=== PATIENT | female | born 2000 | race American Indian/Alaskan Native ===

== ENCOUNTER 2018-12-24 18:22 | Inpatient (IN) | payer MEDICAID, OTHER ==
[2018-12-24] MEDS ORDERED: XYLOCAINE 2% INFILTRATI ONE (19:08)
[2018-12-24] MEDS ORDERED: BRETHINE IVP PRN (19:08)
[2018-12-24] MEDS ORDERED: STADOL IV PRN (19:08)
[2018-12-24] MEDS ORDERED: MINERAL OIL PO PRN (19:08)
[2018-12-24] MEDS ORDERED: SUBLIMAZE IV PRN (19:08)
[2018-12-24] MEDS ORDERED: ZOFRAN IV PRN (19:08)
[2018-12-24] MEDS ORDERED: BRETHINE SUB-Q PRN (19:08)
--- NOTE | 2018-12-24 19:32 | History and Physical Report ---
History of Present Illness Date of examination: 12/24/18 Date of admission: 12/24/18 18:22 Chief complaint: 39 week gestation Elevated blood pressure affecting History of present illness: 18 yo, at 39.1 wks gestation, who is a pt of [employer], initiated care at 22.1 wks gestation. She was seen today in clinic and sent to [facility] for labor augmentation secondary advance dilatation with elevated blood pressures. Her has been complicated by late care, sickle cell trait, anemia and chlamydia infection (tx 09/19/18, FRANDY collected today, results pending). Labs: A+, antibody negative; rubella immune; VDRL negative; HBsAg negative; HIV negative, Gc/Trichomonas negative; 1 hr [id number]; GBS negative Past History Past Medical History: other (Eczema; Sickle cell trait) Past Surgical History: no surgical history [employer] History: chlamydia (09/19/2018) Family/Genetic History: hypertension, cancer, other (Hyperlipidema) Social history: single, lives with family, full code. denies: smoking, alcohol abuse, prescription drug abuse, IV drug use - Obstetrical History Expected Date of Delivery: 12/30/18 Actual Gestation: 39 Week(s) 1 Day(s) : 2 Para: 1 Hx # Term Pregnancies: 1 Number of Pregnancies: 0 Spontaneous Abortions: 0 Induced : 0 Number of Living Children: 1 #1 Gender: Male year: 2020 Birthweight: 2.92 kg Method of Delivery: Vaginal Gestational age at delivery: 38 Complications: none Medications and Allergies Active Meds: Active Medications Butorphanol Tartrate (Stadol) 1 mg IV Q2H PRN PRN Reason: Pain, Moderate (4-6) Ephedrine Sulfate (Ephedrine Sulfate) 10 mg IV Q2M PRN PRN Reason: Hypotension Fentanyl (Sublimaze) 100 mcg IV Q2H PRN PRN Reason: Labor Pain Oxytocin/Sodium Chloride (Pitocin/Ns 20 Unit/1000ml Drip) 20 units in 1,000 mls @ 125 mls/hr IV DIRECT JANENE Oxytocin/Sodium Chloride (Pitocin/Ns 30 Unit/500ml) 30 units in 500 mls @ 2 mls/hr IV TITR JANENE; Protocol Lactated Ringer's (Lactated Ringers) 1,000 mls @ 125 mls/hr IV DIRECT JANENE Lidocaine (Xylocaine 2%) 20 ml INFILTRATI ONCE ONE Stop: 12/24/18 19:09 Mineral Oil (Mineral Oil) 30 ml PO QHS PRN PRN Reason: Constipation Ondansetron HCl (Zofran) 4 mg IV Q8H PRN PRN Reason: Nausea And Vomiting Terbutaline Sulfate (Brethine) 0.25 mg SUB-Q ONCE PRN PRN Reason: Hyperstimulation/Hypertonicity Terbutaline Sulfate (Brethine) 0.25 mg IVP ONCE PRN PRN Reason: Hyperstimulation/Hypertonicity Review of Systems All systems: negative Eyes: no blurred vision, no tunnel vision, no blind spots Neurological: no headaches, no double vision, no loss of vision - Vital Signs Vital signs: Vital Signs Pulse Pulse Ox 79 91 12/24/18 18:56 12/24/18 18:56 Temp Pulse Resp BP Pulse Ox 112 H 154/89 100 12/24/18 19:07 12/24/18 19:07 12/24/18 19:01 - Physical Exam Breasts: Positive: deferred Cardiovascular: Regular rate Lungs: Positive: Normal air movement Abdomen: Positive: other (gravid) Genitourinary (Female): Positive: normal external genitalia Vagina: Positive: normal moisture Uterus: Positive: enlarged (S=D) Anus/Rectum: Positive: normal perianal skin Extremities: Positive: normal Deep Tendon Reflex Grade: Normal +2 - Obstetrical FHR: category 1 Uterine Contraction Monitor Mode: External Cervical Dilatation: 5 Cervical Effacement Percentage: 90 station: -2 Uterine Contraction Frequency (min): 5-7 Uterine Contraction Pattern: Irregular Uterine Tone Measurement Phase: Resting Uterine Contraction Intensity: Mild Results All other labs normal. Assessment and Plan - Patient Problems (1) 39 weeks gestation of Current Visit: Yes Status: Acute Plan to address problem: Admit to L & D Pitocin augmentation Pain medications/Epidural as desired Anticipate (2) Elevated blood pressure complicating in third trimester, antepartum Current Visit: Yes Status: Acute Plan to address problem: Q 15 B/P monitoring Notify for B/P > 160/100 (3) Anemia affecting second Current Visit: Yes Status: Acute Plan to address problem: Resume po iron supplementation PP (4) Late care affecting Current Visit: Yes Status: Acute
[2018-12-24] MEDS ORDERED: PITOCin/NS 30 UNIT/500ML 30 UNITS/500 ML BAG IV SCH (20:00)
[2018-12-24] MEDS ORDERED: PITOCin/NS 20 UNIT/1000ML DRIP 20 UNITS/1,000 ML BAG IV SCH (20:00)
[2018-12-24] MEDS ORDERED: LACTATED RINGERS 1,000 ML IV SCH ×2 (20:00→22:00)
[2018-12-24 20:39] LABS: Hematocrit 21.2 % (30.3-42.9); Hemoglobin 6.7 gm/dl (10.1-14.3); Mean Corpuscular HGB Conc 32 % (30-34); Platelet Count 336 K/mm3 (140-440); Red Blood Count 3.37 M/mm3 (3.65-5.03)
[2018-12-24 20:50] LABS: Mean Corpuscular Volume 63 fl (79-97)
[2018-12-24] MEDS ORDERED: APRESOLINE IV PRN (21:33)
--- NOTE | 2018-12-24 21:46 | Event Note ---
18yo at 39 1/7 weeks presents for augmentation of labor due to gestational hypertension . Labs were drawn and H/H 01/10. She denies dyspnea, headache or feeling lightheaded. She presented in latent labor 5cm. Discussed recommendation of blood transfusion with patient. BP in room 125/78. BP 140/100 150/90 on admission No sx of preeclampsia with severe features. The patient states she was anemic with her first baby 1 year ago. She states she eats ice which she thought was supposed to help with her anemia. She states the baby needed a blood transfusion. She is a poor historian. Plan 1. Draw PIH labs. If severe features, start magnesium sulfate. 2. If patient agrees to blood transfusion, transfuse 2 units pRBCs. 3. Order prophylactic Hemabate and Misprostol for hemorrhage. 4. Once blood transfusion complete or if preeclampsia diagnosed, proceed to augmentation of labor.
[2018-12-24 22:01] LABS: Albumin 3.4 g/dL (3.9-5); Bilirubin,Direct 0.2 mg/dL (0-0.2); Uric Acid 4.1 mg/dL (3.5-7.6)
[2018-12-24 22:02] LABS: Alanine Aminotransferase < 5 units/L (7-56)
[2018-12-24] MEDS ORDERED: BENADRYL PO PRN (22:19)
[2018-12-24] MEDS ORDERED: TYLENOL PO PRN (22:19)
[2018-12-24] MEDS ORDERED: NACL 0.9% 500 ML 500 ML IV ONE (22:45)
[2018-12-25 01:07] LABS: Bacteria,Urine 1+ /HPF (Negative); Bilirubin,Urine NEG (Negative); Blood,Urine MOD (Negative); Color,Urine Yellow (Yellow); Protein,Urine <15 mg/dL mg/dL (Negative)
[2018-12-25 06:39] LABS: Hematocrit 25.6 % (30.3-42.9); Hemoglobin 8.4 gm/dl (10.1-14.3); Mean Corpuscular HGB Conc 33 % (30-34); Platelet Count 293 K/mm3 (140-440); Red Blood Count 3.81 M/mm3 (3.65-5.03)
[2018-12-25 06:40] LABS: Mean Corpuscular Volume 67 fl (79-97); Red Cell Distribution Width 25.4 % (13.2-15.2)
--- NOTE | 2018-12-25 10:06 | Progress Note ---
Assessment and Plan A: IUP @ 39 2/7 Weeks Category I Tracings Gestational HTN Severe Anemia GBS Negative Advanced Cervical Dilation P: Start Pitocin Augmentation Subjective - Subjective Date of service: 12/25/18 Patient reports: movement normal, other (States she feels better after blood transfusion. Denies dizziness, nausea/vomitting, epigastic pain, HAs, and visual changes) Objective - Vital Signs Vital Signs: Vital Signs - 12hr 12/24/18 12/24/18 12/24/18 22:07 22:12 22:17 Temperature Pulse Rate 135 H 96 H 109 H Respiratory Rate Blood Pressure 138/84 O2 Sat by Pulse 100 100 100 Oximetry 12/24/18 12/24/18 12/24/18 22:22 22:27 22:32 Temperature Pulse Rate 94 H 91 H 92 H Respiratory Rate Blood Pressure O2 Sat by Pulse 100 100 100 Oximetry 12/24/18 12/24/18 12/24/18 22:37 22:39 22:42 Temperature Pulse Rate 85 97 H 92 H Respiratory Rate Blood Pressure 122/84 O2 Sat by Pulse 100 100 Oximetry 12/24/18 12/24/18 12/24/18 22:47 22:52 22:57 Temperature Pulse Rate 92 H 86 102 H Respiratory Rate Blood Pressure O2 Sat by Pulse 100 100 100 Oximetry 12/24/18 12/24/18 12/24/18 23:02 23:07 23:09 Temperature Pulse Rate 111 H 94 H 85 Respiratory Rate Blood Pressure 134/87 O2 Sat by Pulse 100 100 Oximetry 12/24/18 12/24/18 12/24/18 23:10 23:12 23:15 Temperature 97.6 F 98.0 F Pulse Rate 84 90 87 Respiratory 16 14 Rate Blood Pressure 134/87 156/99 O2 Sat by Pulse 100 100 Oximetry 12/24/18 12/24/18 12/24/18 23:17 23:22 23:25 Temperature 97.8 F Pulse Rate 87 92 H 76 Respiratory 16 Rate Blood Pressure 120/90 O2 Sat by Pulse 100 99 Oximetry 12/24/18 12/24/18 12/24/18 23:27 23:32 23:37 Temperature Pulse Rate 86 80 77 Respiratory Rate Blood Pressure 132/80 O2 Sat by Pulse 100 100 93 Oximetry 12/24/18 12/24/18 12/24/18 23:41 23:42 23:47 Temperature Pulse Rate 76 76 76 Respiratory Rate Blood Pressure 120/90 O2 Sat by Pulse 100 100 Oximetry 12/24/18 12/24/18 12/25/18 23:52 23:57 00:02 Temperature Pulse Rate 88 82 76 Respiratory Rate Blood Pressure 144/78 O2 Sat by Pulse 100 100 100 Oximetry 12/25/18 12/25/18 12/25/18 00:03 00:07 00:08 Temperature 97.6 F Pulse Rate 77 82 83 Respiratory 16 Rate Blood Pressure 132/82 O2 Sat by Pulse 100 99 92 Oximetry 12/25/18 12/25/18 12/25/18 00:20 00:22 00:25 Temperature 98.2 F Pulse Rate 98 H 98 H 74 Respiratory 16 Rate Blood Pressure 126/72 128/86 O2 Sat by Pulse 100 100 Oximetry 12/25/18 12/25/18 12/25/18 00:26 00:30 00:35 Temperature Pulse Rate 85 91 H 87 Respiratory Rate Blood Pressure 132/82 O2 Sat by Pulse 100 99 Oximetry 12/25/18 12/25/18 12/25/18 00:38 00:40 00:41 Temperature 98.2 F Pulse Rate 85 78 50 L Respiratory 16 Rate Blood Pressure 139/87 128/86 O2 Sat by Pulse 88 87 Oximetry 12/25/18 12/25/18 12/25/18 00:46 00:51 00:52 Temperature Pulse Rate 92 H 75 71 Respiratory Rate Blood Pressure O2 Sat by Pulse 89 100 87 Oximetry 12/25/18 12/25/18 12/25/18 00:56 00:57 00:59 Temperature Pulse Rate 73 76 79 Respiratory Rate Blood Pressure 157/94 139/87 O2 Sat by Pulse 100 Oximetry 12/25/18 12/25/18 12/25/18 01:01 01:06 01:07 Temperature Pulse Rate 83 77 79 Respiratory Rate Blood Pressure O2 Sat by Pulse 100 99 89 Oximetry 12/25/18 12/25/18 12/25/18 01:11 01:16 01:21 Temperature Pulse Rate 74 76 63 Respiratory Rate Blood Pressure 138/87 O2 Sat by Pulse 100 100 98 Oximetry 12/25/18 12/25/18 12/25/18 01:26 01:27 01:31 Temperature Pulse Rate 73 68 70 Respiratory Rate Blood Pressure 145/91 O2 Sat by Pulse 99 98 Oximetry 12/25/18 12/25/18 12/25/18 01:36 01:41 01:52 Temperature Pulse Rate 80 80 78 Respiratory Rate Blood Pressure 143/90 O2 Sat by Pulse 100 98 99 Oximetry 12/25/18 12/25/18 12/25/18 01:57 01:58 02:02 Temperature Pulse Rate 73 80 72 Respiratory Rate Blood Pressure 137/83 O2 Sat by Pulse 98 98 Oximetry 12/25/18 12/25/18 12/25/18 02:07 02:12 02:17 Temperature Pulse Rate 71 70 79 Respiratory Rate Blood Pressure 147/76 O2 Sat by Pulse 98 97 98 Oximetry 12/25/18 12/25/18 12/25/18 02:22 02:27 02:29 Temperature Pulse Rate 76 97 H 89 Respiratory Rate Blood Pressure 135/78 O2 Sat by Pulse 98 97 Oximetry 12/25/18 12/25/18 12/25/18 02:32 02:42 02:58 Temperature Pulse Rate 82 86 77 Respiratory Rate Blood Pressure 136/81 126/67 O2 Sat by Pulse 97 Oximetry 12/25/18 12/25/18 12/25/18 03:12 03:17 03:22 Temperature Pulse Rate 84 72 72 Respiratory Rate Blood Pressure O2 Sat by Pulse 96 100 99 Oximetry 12/25/18 12/25/18 12/25/18 03:27 03:32 03:37 Temperature Pulse Rate 70 73 72 Respiratory Rate Blood Pressure 149/82 O2 Sat by Pulse 99 99 98 Oximetry 12/25/18 12/25/18 12/25/18 03:41 03:42 03:47 Temperature Pulse Rate 76 78 78 Respiratory Rate Blood Pressure 130/72 O2 Sat by Pulse 98 98 Oximetry 12/25/18 12/25/18 12/25/18 03:52 03:56 03:57 Temperature Pulse Rate 77 72 80 Respiratory Rate Blood Pressure 143/77 O2 Sat by Pulse 98 98 Oximetry 12/25/18 12/25/18 12/25/18 04:02 04:07 04:12 Temperature Pulse Rate 86 87 85 Respiratory Rate Blood Pressure 124/73 O2 Sat by Pulse 98 98 96 Oximetry 12/25/18 12/25/18 12/25/18 04:17 04:22 04:27 Temperature Pulse Rate 101 H 82 77 Respiratory Rate Blood Pressure 131/73 O2 Sat by Pulse 98 96 98 Oximetry 12/25/18 12/25/18 12/25/18 04:32 04:41 04:56 Temperature Pulse Rate 92 H 75 80 Respiratory Rate Blood Pressure 123/71 138/76 O2 Sat by Pulse 99 Oximetry 12/25/18 12/25/18 12/25/18 05:12 05:26 05:51 Temperature Pulse Rate 85 82 87 Respiratory Rate Blood Pressure 143/86 126/75 O2 Sat by Pulse 96 Oximetry 12/25/18 12/25/18 12/25/18 05:56 06:01 06:06 Temperature Pulse Rate 74 80 78 Respiratory Rate Blood Pressure 136/83 O2 Sat by Pulse 96 97 97 Oximetry 12/25/18 12/25/18 12/25/18 06:11 06:12 06:16 Temperature Pulse Rate 76 77 73 Respiratory Rate Blood Pressure 137/83 O2 Sat by Pulse 95 98 Oximetry 12/25/18 12/25/18 12/25/18 06:26 06:31 06:36 Temperature Pulse Rate 87 92 H Respiratory Rate Blood Pressure O2 Sat by Pulse 92 96 98 Oximetry 12/25/18 06:41 Temperature Pulse Rate 79 Respiratory Rate Blood Pressure O2 Sat by Pulse 96 Oximetry - Exam Breasts: normal Cardiovascular: Regular rate Lungs: Clear to auscultation, Normal air movement Abdomen: Present: normal appearance, soft Uterus: Present: normal, firm, fundal height above umbilicus FHR: category 1 Uterine Contraction Monitor Mode: External Cervical Dilatation: 5 (VTX, Intact) Cervical Effacement Percentage: 80 station: -1 Uterine Contraction Pattern: Irregular Uterine Tone Measurement Phase: Resting Uterine Contraction Intensity: Mild Extremities: normal - Labs Labs: Abnormal Labs 12/24/18 12/24/18 12/24/18 20:17 20:17 20:17 WBC 13.9 H RBC 3.37 L Hgb 6.7 L Hct 21.2 L MCV 63 L MCH 20 L RDW 21.0 H Creatinine 0.6 L ALT < 5 L Albumin Urine WBC (Auto) Crossmatch See Detail 12/24/18 12/25/18 12/25/18 20:17 00:42 06:19 WBC 15.3 H RBC Hgb 8.4 L Hct 25.6 L MCV 67 L MCH 22 L RDW 25.4 H Creatinine ALT < 5 L Albumin 3.4 L Urine WBC (Auto) 42.0 H Crossmatch Laboratory Results - last 24 hr 12/24/18 12/24/18 12/24/18 20:17 20:17 20:17 WBC 13.9 H RBC 3.37 L Hgb 6.7 L Hct 21.2 L MCV 63 L MCH 20 L MCHC 32 RDW 21.0 H Plt Count 336 Creatinine 0.6 L Estimated GFR > 60 Uric Acid 4.1 Total Bilirubin Direct Bilirubin Indirect Bilirubin AST 13 ALT < 5 L Alkaline Phosphatase Lactate Dehydrogenase Total Protein Albumin Albumin/Globulin Ratio Urine Color Urine Turbidity Urine pH Ur Specific [place] Urine Protein Urine Glucose (UA) Urine Ketones Urine Blood Urine Nitrite Urine Bilirubin Urine Urobilinogen Ur Leukocyte Esterase Urine WBC (Auto) Urine RBC (Auto) U Epithel Cells (Auto) Urine Bacteria (Auto) Urine Yeast (Budding) Blood Type A POSITIVE Antibody Screen TNR DENZEL Antibody Screen Negative Crossmatch See Detail 12/24/18 12/24/18 12/25/18 20:17 Unknown 00:42 WBC RBC Hgb Hct MCV MCH MCHC RDW Plt Count Creatinine Estimated GFR Uric Acid Total Bilirubin 0.60 Direct Bilirubin 0.2 Indirect Bilirubin 0.4 AST 14 ALT < 5 L Alkaline Phosphatase 128 Lactate Dehydrogenase 174 Total Protein 6.3 Albumin 3.4 L Albumin/Globulin Ratio 1.2 Urine Color Yellow Urine Turbidity Slightly-cloudy Urine pH 6.0 Ur Specific [place] 1.009 Urine Protein <15 mg/dl Urine Glucose (UA) Neg Urine Ketones Tr Urine Blood Mod Urine Nitrite Neg Urine Bilirubin Neg Urine Urobilinogen 4.0 Ur Leukocyte Esterase Lg Urine WBC (Auto) 42.0 H Urine RBC (Auto) 11.0 U Epithel Cells (Auto) 2.0 Urine Bacteria (Auto) 1+ Urine Yeast (Budding) Few Blood Type Antibody Screen DENZEL Antibody Screen Crossmatch 12/25/18 06:19 WBC 15.3 H RBC 3.81 Hgb 8.4 L Hct 25.6 L MCV 67 L MCH 22 L MCHC 33 RDW 25.4 H Plt Count 293 Creatinine Estimated GFR Uric Acid Total Bilirubin Direct Bilirubin Indirect Bilirubin AST ALT Alkaline Phosphatase Lactate Dehydrogenase Total Protein Albumin Albumin/Globulin Ratio Urine Color Urine Turbidity Urine pH Ur Specific [place] Urine Protein Urine Glucose (UA) Urine Ketones Urine Blood Urine Nitrite Urine Bilirubin Urine Urobilinogen Ur Leukocyte Esterase Urine WBC (Auto) Urine RBC (Auto) U Epithel Cells (Auto) Urine Bacteria (Auto) Urine Yeast (Budding) Blood Type Antibody Screen DENZEL Antibody Screen Crossmatch
[2018-12-25] MEDS ORDERED: PITOCin/NS 30 UNIT/500ML 30 UNITS/500 ML BAG IV SCH (11:00)
[2018-12-25] MEDS ORDERED: MARCAINE 0.25% INFILTRATI ONE (13:38)
--- NOTE | 2018-12-25 13:46 | Progress Note ---
Assessment and Plan A: IUP @ 39 2/7 Weeks Category I Tracings Gestational HTN Severe Anemia GBS Negative Active Labor P: Continue Pitocin Augmentation AROM Epidural Anesthesia Subjective - Subjective Date of service: 12/25/18 Patient reports: movement normal, contractions (Requesting Epidural anesthesia), other (States she feels better after blood transfusion. Denies dizziness, nausea/vomitting, epigastic pain, HAs, and visual changes) Objective - Vital Signs Vital Signs: Vital Signs - 12hr 12/25/18 12/25/18 12/25/18 01:52 01:57 01:58 Temperature Pulse Rate 78 73 80 Blood Pressure 137/83 O2 Sat by Pulse 99 98 Oximetry 12/25/18 12/25/18 12/25/18 02:02 02:07 02:12 Temperature Pulse Rate 72 71 70 Blood Pressure 147/76 O2 Sat by Pulse 98 98 97 Oximetry 12/25/18 12/25/18 12/25/18 02:17 02:22 02:27 Temperature Pulse Rate 79 76 97 H Blood Pressure O2 Sat by Pulse 98 98 97 Oximetry 12/25/18 12/25/18 12/25/18 02:29 02:32 02:42 Temperature Pulse Rate 89 82 86 Blood Pressure 135/78 136/81 O2 Sat by Pulse 97 Oximetry 12/25/18 12/25/18 12/25/18 02:58 03:12 03:17 Temperature Pulse Rate 77 84 72 Blood Pressure 126/67 O2 Sat by Pulse 96 100 Oximetry 12/25/18 12/25/18 12/25/18 03:22 03:27 03:32 Temperature Pulse Rate 72 70 73 Blood Pressure 149/82 O2 Sat by Pulse 99 99 99 Oximetry 12/25/18 12/25/18 12/25/18 03:37 03:41 03:42 Temperature Pulse Rate 72 76 78 Blood Pressure 130/72 O2 Sat by Pulse 98 98 Oximetry 12/25/18 12/25/18 12/25/18 03:47 03:52 03:56 Temperature Pulse Rate 78 77 72 Blood Pressure 143/77 O2 Sat by Pulse 98 98 Oximetry 12/25/18 12/25/18 12/25/18 03:57 04:02 04:07 Temperature Pulse Rate 80 86 87 Blood Pressure O2 Sat by Pulse 98 98 98 Oximetry 12/25/18 12/25/18 12/25/18 04:12 04:17 04:22 Temperature Pulse Rate 85 101 H 82 Blood Pressure 124/73 O2 Sat by Pulse 96 98 96 Oximetry 12/25/18 12/25/18 12/25/18 04:27 04:32 04:41 Temperature Pulse Rate 77 92 H 75 Blood Pressure 131/73 123/71 O2 Sat by Pulse 98 99 Oximetry 12/25/18 12/25/18 12/25/18 04:56 05:12 05:26 Temperature Pulse Rate 80 85 82 Blood Pressure 138/76 143/86 126/75 O2 Sat by Pulse Oximetry 12/25/18 12/25/18 12/25/18 05:51 05:56 06:01 Temperature Pulse Rate 87 74 80 Blood Pressure 136/83 O2 Sat by Pulse 96 96 97 Oximetry 12/25/18 12/25/18 12/25/18 06:06 06:11 06:12 Temperature Pulse Rate 78 76 77 Blood Pressure 137/83 O2 Sat by Pulse 97 95 Oximetry 12/25/18 12/25/18 12/25/18 06:16 06:26 06:31 Temperature Pulse Rate 73 87 Blood Pressure O2 Sat by Pulse 98 92 96 Oximetry 12/25/18 12/25/18 12/25/18 06:36 06:41 07:30 Temperature 97.6 F Pulse Rate 92 H 79 Blood Pressure O2 Sat by Pulse 98 96 Oximetry 12/25/18 12/25/18 12/25/18 10:03 10:27 10:41 Temperature Pulse Rate 75 85 86 Blood Pressure 144/90 136/88 141/95 O2 Sat by Pulse Oximetry 12/25/18 12/25/18 12/25/18 10:56 11:12 11:26 Temperature Pulse Rate 76 92 H 79 Blood Pressure 143/101 140/96 154/94 O2 Sat by Pulse Oximetry 12/25/18 12/25/18 11:42 12:12 Temperature Pulse Rate 85 89 Blood Pressure 152/90 148/91 O2 Sat by Pulse Oximetry - Exam Breasts: normal Cardiovascular: Regular rate Lungs: Clear to auscultation, Normal air movement Abdomen: Present: normal appearance, soft Uterus: Present: normal, firm, fundal height above umbilicus FHR: category 1 Uterine Contraction Monitor Mode: External Cervical Dilatation: 6 (Moderate amount of clear fluid upon AROM at 1340) Cervical Effacement Percentage: 90 station: -1 Uterine Contraction Pattern: Regular Uterine Tone Measurement Phase: Resting Uterine Contraction Intensity: Moderate Extremities: normal - Labs Labs: Abnormal Labs 12/24/18 12/24/18 12/24/18 20:17 20:17 20:17 WBC 13.9 H RBC 3.37 L Hgb 6.7 L Hct 21.2 L MCV 63 L MCH 20 L RDW 21.0 H Creatinine 0.6 L ALT < 5 L Albumin Urine WBC (Auto) Crossmatch See Detail 12/24/18 12/25/18 12/25/18 20:17 00:42 06:19 WBC 15.3 H RBC Hgb 8.4 L Hct 25.6 L MCV 67 L MCH 22 L RDW 25.4 H Creatinine ALT < 5 L Albumin 3.4 L Urine WBC (Auto) 42.0 H Crossmatch Laboratory Results - last 24 hr 12/24/18 12/24/18 12/24/18 20:17 20:17 20:17 WBC 13.9 H RBC 3.37 L Hgb 6.7 L Hct 21.2 L MCV 63 L MCH 20 L MCHC 32 RDW 21.0 H Plt Count 336 Creatinine Estimated GFR Uric Acid Total Bilirubin Direct Bilirubin Indirect Bilirubin AST ALT Alkaline Phosphatase Lactate Dehydrogenase Total Protein Albumin Albumin/Globulin Ratio Urine Color Urine Turbidity Urine pH Ur Specific [place] Urine Protein Urine Glucose (UA) Urine Ketones Urine Blood Urine Nitrite Urine Bilirubin Urine Urobilinogen Ur Leukocyte Esterase Urine WBC (Auto) Urine RBC (Auto) U Epithel Cells (Auto) Urine Bacteria (Auto) Urine Yeast (Budding) RPR Nonreactive Blood Type A POSITIVE Antibody Screen TNR DENZEL Antibody Screen Negative Crossmatch See Detail 12/24/18 12/24/18 12/24/18 20:17 20:17 Unknown WBC RBC Hgb Hct MCV MCH MCHC RDW Plt Count Creatinine 0.6 L Estimated GFR > 60 Uric Acid 4.1 Total Bilirubin 0.60 Direct Bilirubin 0.2 Indirect Bilirubin 0.4 AST 13 14 ALT < 5 L < 5 L Alkaline Phosphatase 128 Lactate Dehydrogenase 174 Total Protein 6.3 Albumin 3.4 L Albumin/Globulin Ratio 1.2 Urine Color Urine Turbidity Urine pH Ur Specific [place] Urine Protein Urine Glucose (UA) Urine Ketones Urine Blood Urine Nitrite Urine Bilirubin Urine Urobilinogen Ur Leukocyte Esterase Urine WBC (Auto) Urine RBC (Auto) U Epithel Cells (Auto) Urine Bacteria (Auto) Urine Yeast (Budding) RPR Blood Type Antibody Screen DENZEL Antibody Screen Crossmatch 12/25/18 12/25/18 00:42 06:19 WBC 15.3 H RBC 3.81 Hgb 8.4 L Hct 25.6 L MCV 67 L MCH 22 L MCHC 33 RDW 25.4 H Plt Count 293 Creatinine Estimated GFR Uric Acid Total Bilirubin Direct Bilirubin Indirect Bilirubin AST ALT Alkaline Phosphatase Lactate Dehydrogenase Total Protein Albumin Albumin/Globulin Ratio Urine Color Yellow Urine Turbidity Slightly-cloudy Urine pH 6.0 Ur Specific [place] 1.009 Urine Protein <15 mg/dl Urine Glucose (UA) Neg Urine Ketones Tr Urine Blood Mod Urine Nitrite Neg Urine Bilirubin Neg Urine Urobilinogen 4.0 Ur Leukocyte Esterase Lg Urine WBC (Auto) 42.0 H Urine RBC (Auto) 11.0 U Epithel Cells (Auto) 2.0 Urine Bacteria (Auto) 1+ Urine Yeast (Budding) Few RPR Blood Type Antibody Screen DENZEL Antibody Screen Crossmatch
[2018-12-25] MEDS ORDERED: fentaNYL-BUPIV 2 MCG/ML-0.125% 200 MCG/100 ML BAG EPIDURAL ONE (14:08)
--- NOTE | 2018-12-25 14:10 | Anesthesia Consultation ---
Anesthesia Consult and Med Hx Date of service: 12/25/18 - Airway Anesthetic Teeth Evaluation: Good ROM Head & Neck: Adequate Mental/Hyoid Distance: Adequate Mallampati Class: Class II Intubation Access Assessment: Good - Pulmonary Exam CTA: Yes - Cardiac Exam Cardiac Exam: RRR - Pre-Operative Health Status ASA Pre-Surgery Classification: ASA2 Proposed Anesthetic Plan: Epidural - Pulmonary Hx Asthma: No COPD: No Hx Pneumonia: No - Cardiovascular System Hx Hypertension: Yes (gestational HTN) - Central Nervous System Hx Psychiatric Problems: No - Endocrine Hx Renal Disease: No Hx End Stage Renal Disease: No Hx Hypothyroidism: No Hx Hyperthyroidism: No - Hematic Hx Anemia: No Hx Sickle Cell Disease: No - Other Systems Hx Alcohol Use: No - Additional Comments Anesthesia Medical History Comments: anemia, sick cell trait
[2018-12-25] MEDS ORDERED: NARCAN 2 MG/2 ML IV PRN (14:11)
[2018-12-25] MEDS ORDERED: CYTOTEC ONE (14:15)
[2018-12-25] MEDS ORDERED: CYTOTEC VG ONE (14:15)
[2018-12-25] MEDS ORDERED: TUCKS PAD TP PRN (14:27)
[2018-12-25] MEDS ORDERED: NORCO 5/325 PO PRN (14:27)
[2018-12-25] MEDS ORDERED: BENADRYL PO PRN (14:27)
[2018-12-25] MEDS ORDERED: LANSINOH TP PRN (14:27)
--- NOTE | 2018-12-25 14:38 | Procedure Note ---
OB Delivery Note - Delivery Date of Delivery: 12/25/18 Surgeon: NEIL WYATT Estimated blood loss: 200cc - Vaginal Delivery presentation: vertex Delivery position: OA Intrapartum events: other(please specify) (Anemia) Delivery induction: none Delivery augmentation: rupture of membranes, pitocin Delivery monitor: external FHT, external uterine Route of delivery: Delivery placenta: spontaneous Delivery cord: 3 umbilical vessels Episiotomy: none Delivery laceration: none Anesthesia: epidural Delivery comments: of a live 7'5 male over a intact perineum under epidural anesthesia with Apgars of 8 and 9 at 1410 on 12/25/2018. Infant directly to maternal abd/chest, skin to skin contact. 1000mcg of Cytotec placed per rectum; PP Pitocin ran wide open. Spontaneous delivery of placenta complete and intact with Green side presenting at 1415. Fundus is firm and midline located 5 below the U; Lochia is scant. Delayed cord clamping and cutting; Cord cut by best friend. Placenta discarded. - Infant A at 1 minute: 8 at 5 minutes: 9 Gender: Male (7'5)
[2018-12-25] MEDS ORDERED: SODIUM CHLORIDE FLUSH SYRINGE 10 ML IV NR (15:00)
[2018-12-25] MEDS ORDERED: fentaNYL-BUPIV 2 MCG/ML-0.125% 200 MCG/100 ML BAG EPIDURAL SCH (15:00)
[2018-12-25] MEDS: IBUPROFEN PO SCH ×2 (16:51→23:24)
[2018-12-25] MEDS: PRENATAL VITAMIN PO SCH (16:53)
--- NOTE | 2018-12-25 20:09 | Post Anesthesia Evaluation ---
- Post Anesthesia Evaluation Patient Participated: Yes Airway Patent: Yes Stable Respiratory Function: Yes Nausea/Vomiting: No Temp > 96.8F: Yes Pain Manageable: Yes Adequeate Hydration: Yes Anesthesia Complications: No Block Receding Appropriately: Yes Patient on Ventilator: No
[2018-12-25] MEDS: FEOSOL PO SCH (23:24)
[2018-12-26 03:24] LABS: Hematocrit 23.6 % (30.3-42.9); Hemoglobin 7.5 gm/dl (10.1-14.3)
[2018-12-26 06:59] LABS: Hematocrit 22.4 % (30.3-42.9); Hemoglobin 7.2 gm/dl (10.1-14.3); Mean Corpuscular HGB Conc 32 % (30-34); Mean Corpuscular Volume 67 fl (79-97); Platelet Count 273 K/mm3 (140-440); Red Blood Count 3.34 M/mm3 (3.65-5.03); Red Cell Distribution Width 25.1 % (13.2-15.2)
[2018-12-26 07:14] LABS: Alanine Aminotransferase < 5 units/L (7-56)
[2018-12-26 07:27] LABS: Uric Acid 3.8 mg/dL (3.5-7.6)
--- NOTE | 2018-12-26 08:23 | Progress Note ---
Assessment and Plan A: PP Day #1 Elevated Blood Pressures Severe Anemia P: Continue Routine Orders Consulted Dr. Liz Mendez: reviewed [facility] labs, BPs, and s/s of [facility] Recommends: Labetolol 200mg PO BID Continue PO FeSO4 Subjective - Subjective Date of service: 12/26/18 Patient reports: appetite normal, voiding normally, pain well controlled, flatus, bowel movement, ambulating normally, other (states she had a mild ARMENTA last night that resolved with Motrin; denies N&V, epigastic pains, edema, and visual changes) [place]: doing well, bottle feeding (and ) Objective - Vital Signs Latest vital signs: Vital Signs Temp Pulse Resp BP BP Pulse Ox 12/26/18 02:30 89 18 140/96 12/25/18 23:23 84 20 140/96 99 12/25/18 21:45 98.1 F 95 H 18 142/98 100 12/25/18 16:15 97.7 F 104 H 18 130/93 12/25/18 13:52 121 H 100 12/25/18 12:12 89 148/91 12/25/18 11:42 85 152/90 12/25/18 11:26 79 154/94 12/25/18 11:12 92 H 140/96 12/25/18 10:56 76 143/101 12/25/18 10:41 86 141/95 12/25/18 10:27 85 136/88 12/25/18 10:03 75 144/90 Intake and Output 12/25/18 12/26/18 12/26/18 22:59 06:59 14:59 Intake Total 540 Output Total 800 Balance -260 Intake: Oral 440 Intake, Free Water 100 Output: Urine 800 Void 800 Other: Total, Intake Amount 240 Total, Output Amount 800 # Voids Void 1 - Exam Breasts: Present: normal Cardiovascular: Present: Regular rate Lungs: Present: Clear to auscultation, Normal air movement Abdomen: Present: normal appearance, soft, normal bowel sounds Uterus: Present: normal, firm, fundal height below umbilicus Extremities: Present: normal - Labs Labs: Abnormal lab results 12/26/18 12/26/18 12/26/18 Range/Units 02:39 06:16 06:16 WBC 19.2 H (4.5-11.0) K/mm3 RBC 3.34 L (3.65-5.03) M/mm3 Hgb 7.5 L 7.2 L (10.1-14.3) gm/dl Hct 23.6 L 22.4 L (30.3-42.9) % MCV 67 L (79-97) fl MCH 22 L (28-32) pg RDW 25.1 H (13.2-15.2) % Creatinine 0.5 L (0.7-1.2) mg/dL ALT < 5 L (7-56) units/L Lactate Dehydrogenase 297 H (91-180) units/L
[2018-12-26] MEDS: COLACE PO SCH (10:35)
[2018-12-26] MEDS: FEOSOL PO SCH (10:45)
[2018-12-26] MEDS: IBUPROFEN PO SCH ×2 (10:45→21:15)
[2018-12-26] MEDS: PRENATAL VITAMIN PO SCH (12:31)
[2018-12-26] MEDS: NORMODYNE PO SCH (12:31)
[2018-12-26 15:55] LABS: Bacteria,Urine 1+ /HPF (Negative); Bilirubin,Urine NEG (Negative); Blood,Urine LG (Negative); Color,Urine Yellow (Yellow); Mucus,Urine FEW /HPF; Protein,Urine <15 mg/dL mg/dL (Negative); Urobilinogen,Urine < 2.0 mg/dL (<2.0)
[2018-12-27] MEDS: FEOSOL PO SCH ×2 (01:20→10:01)
[2018-12-27] MEDS: COLACE PO SCH ×3 (01:21→10:01)
[2018-12-27] MEDS: NORMODYNE PO SCH ×2 (01:29→10:01)
[2018-12-27] MEDS: IBUPROFEN PO SCH ×2 (01:30→04:16)
[2018-12-27] MEDS ORDERED: BOOSTRIX IM ONE (06:10)
[2018-12-27] MEDS ORDERED: INFED IM ONE (11:01)
[2018-12-27] MEDS ORDERED: AFLURIA QUAD 2018-2019 SYRINGE IM ONE (12:00)
--- NOTE | 2018-12-27 12:08 | Progress Note ---
Assessment and Plan A: PPD#2 s/p Asymptomatic Anemia Vital signs stable P: Continue Routine Orders Infed 100mg IM x 1 dose Continue PO FeSO4 Discharge home today Subjective - Subjective Date of service: 12/27/18 Principal diagnosis: PPD#2 s/p Patient reports: appetite normal, voiding normally, pain well controlled, ambulating normally : doing well, bottle feeding Objective - Vital Signs Latest vital signs: Vital Signs Temp Pulse Resp BP BP Pulse Ox 12/27/18 08:47 98.3 F 77 16 126/84 100 12/27/18 02:29 97.7 F 79 18 114/70 99 12/26/18 23:15 18 119/74 100 12/26/18 17:05 97.8 F 83 18 116/74 100 Intake and Output 12/26/18 12/27/18 12/27/18 23:59 07:59 15:59 Intake Total 360 240 120 Balance 360 240 120 Intake: Oral 360 240 120 Other: Total, Intake Amount 360 240 120 # Voids Void 1 - Exam Breasts: Present: normal Cardiovascular: Present: Regular rate, Normal S1, Normal S2, No murmurs Lungs: Present: Clear to auscultation, Normal air movement Abdomen: Present: normal appearance, soft, normal bowel sounds. Absent: distention Vulva: both: normal Uterus: Present: firm, fundal height below umbilicus (-1) Extremities: Present: normal Deep Tendon Reflex Grade: Normal +2 - Labs Labs: Abnormal lab results 12/26/18 Range/Units Unknown Urine WBC (Auto) 17.0 H (0.0-6.0) /HPF
--- NOTE | 2018-12-27 12:11 | Discharge Summary ---
Providers - Providers Date of Admission: 12/24/18 18:22 Date of discharge: 12/27/18 Attending physician: ANITA LONDON Primary care physician: ANITA LONDON Hospitalization Reason for admission: IUP at term Delivery: Procedure details: See delivery note Episiotomy: none Laceration: none Other procedures: none complications: none Discharge diagnosis: IUP at term delivered baby: male Condition at discharge: Good Disposition: DC-01 TO HOME OR SELFCARE Plan - Provider Discharge Summary Activity: routine, no sex for 6 weeks, no heavy lifting 4 weeks, no strenuous exercise Diet: routine Instructions: routine Additional instructions: [] Smoking cessation referral if applicable(refer to patient education folder for contact #) [] Refer to [facility] Booklet Call your doctor immediately for: * Fever > 100.5 * Heavy vaginal bleeding ( >1 pad per hour) * Severe persistent headache * Shortness of breath * Reddened, hot, painful area to leg or breast * Drainage or odor from incision. * Keep incision clean and dry at all times and follow doctor's instructions regarding bathing/showering Continue Ferrous sulfate PO at home - Follow up plan Follow up: ANITA LONDON MD [Primary Care Provider] - 6 Weeks
[2018-12-27 17:19] VITALS: BP 129/86
== END 2018-12-27 16:30 | disposition home or self-care (01) | DRG 807 ==
LOC: LD 18:22 → OB 12-25 16:22
PROVIDERS: ADMIT Obstetrics & Gynecology; ATTEND Obstetrics & Gynecology
PROC: 30233N1 Transfusion of Nonautologous Red Blood Cells into Peripheral Vein, Percutaneous Approach (ICD-10-PCS; 2018-12-24)
PROC: 10E0XZZ Delivery of Products of Conception, External Approach (ICD-10-PCS; principal; 2018-12-25)
PROC: 3E0R3BZ Introduction of Anesthetic Agent into Spinal Canal, Percutaneous Approach (ICD-10-PCS; 2018-12-25)
PROC: 00HU33Z Insertion of Infusion Device into Spinal Canal, Percutaneous Approach (ICD-10-PCS; 2018-12-25)
DX: O99.02 Anemia complicating childbirth (principal); Z37.0 Single live birth; D57.3 Sickle-cell trait; O13.4 Gestational [pregnancy-induced] hypertension without significant proteinuria, complicating childbirth; Z3A.39 39 weeks gestation of pregnancy
CPT/HCPCS: 36415; 80076; 81001; 82565; 83615; 84450; 84460; 84550; 85014; 85018; 85027; 86592; 86850; 86900; 86901; 86920; 87076; 87086; 87186; 90686; 90715; G0378; J1750; J2590; J3010; J7040; J7120; P9016